=== PATIENT | female | born 1950 | race Caucasian/White ===

== ENCOUNTER → 2018-10-30 10:27 | Outpatient (CLI) | payer MEDICARE, BC | END | disposition home or self-care (01) | LOC: D.CT 10:27 | PROVIDERS: ATTEND Internal Medicine Cardiovascular Disease | DX: I10 Essential (primary) hypertension (principal) ==

== ENCOUNTER → 2019-06-04 10:14 | Outpatient (CLI) | payer MEDICARE, BC | END | disposition home or self-care (01) | LOC: D.HCCARDIO 10:14 | PROVIDERS: ATTEND Internal Medicine Cardiovascular Disease | DX: R07.9 Chest pain, unspecified (principal) ==

== ENCOUNTER 2019-06-11 06:45 | Outpatient (CLI) | payer MEDICARE, BC ==
[~2019-06-11] VITALS: Ht 167.6 cm; Wt 117.3 kg
--- NOTE | ~2019-06-11 | HEMODYNAMI ---
PATIENT:KIAN CHACON MEDICAL RECORD: [id number] : 48 LOCATION:[facility] ADMISSION DATE: 06/11/19 Generatedon:06/11/20198:58 Patient name: KIAN CHACON Patient #: [id number] SSN: [id number] : 1950 Date of study: 06/11/2019 Page: Of Hemodynamic Procedure Report Patient Data Patient Demographics Procedure consent was obtained First Name: KIAN Gender: Female Last Name: INES : 1950 Middle Initial: JAMES Age: 68 year(s) Patient #: [id number] Race: SSN: [id number] Additional ID: [id number] Contact details Address: [place] [address] State: [place] City: [place] Zip code: [address] Past Medical History Performed procedures and imaging results Date Procedure Procedure Results Comments 06/04/2019 Stress testing Positive->Intermediate with SPECT MPI risk Allergies Allergen Reaction Date Comments Reported Other allergy 06/11/2019 MORPHINE Admission Admission Data Admission Date: 06/11/2019 Admission Time: 6:45 Arrival Date: 06/11/2019 Arrival Time: 0:00 Admit Source: Other Insurance Payor: Medicare [facility] #: [id number] Height (in.): 66 BSA: 2.23 (m2) Height (cm.): 167.64 BMI: 41.73 (kg/m2) Weight (lbs.): 258.54 Weight (kg.): 117.27 Lab Results Lab Result Date: 06/11/2019 Lab Result Time: 0:00 Biochemistry Name Units Result Min Max BUN mg/dl 19 --(----)*- 7 18 Creatinine mg/dl 0.9 --(-*--)-- 0.6 1.3 eGFR ml/min 66 *-(----)-- 90 120 NONAFRICAN CBC Name Units Result Min Max Hematocrit % 37.5 *-(----)-- 42 54 Hemoglobin g/dl 11.9 *-(----)-- 13.5 17.5 Procedure Procedure Types Cath Procedure Diagnostic Procedure [facility] w/Coronaries Sedation Charges Moderate Sedation up to 15 minutes Procedure Description Procedure Date Procedure Date: 06/11/2019 Procedure Start Time: 8:39 Procedure End Time: 8:56 Procedure Staff Name Function Tristian Casarez MD Performing Physician Michelle Simmons RN Nurse Kori Simpson RT Scrub Sakshi Lara RT Monitor Procedure Data Cath Procedure Fluoroscopy Diagnostic fluoroscopy Total fluoroscopy Time: 2 time: 2 min min Diagnostic fluoroscopy Total fluoroscopy dose: 526 dose: 526 mGy mGy Contrast Material Contrast Material Type Amount (ml) Isovue 300 60 Entry Location Entry Primary Successful Side Size Upsize Upsize Entry Closure Succes sful Closure Location (Fr) 1 (Fr) 2 (Fr) Remarks Device Remarks Femoral Right 5 Fr Exoseal artery Estimated blood loss: 5 ml Diagnostic catheters Device Type Used For End Catheter Placement MULTIPACK JL 4.0 5Fr Left Coronary catheter Angiography MULTIPACK 3DRC 5Fr Right Coronary catheter Angiography MULTIPACK Pigtail 5 Fr LV Angiography catheter Procedure Complications No complications Procedure Medications Medication Administration Route Dosage Oxygen etCO2 Nasal cannula 2 l/min Lidocaine 2% added to field 20 Heparin Flush Bag added to field 2 bags (1000units/500ml NS) 0.9% NaCl I.V. 100 ml/hr Versed I.V. 1 mg Fentanyl I.V. 50 mcg Versed I.V. 1 mg Fentanyl I.V. 50 mcg Versed I.V. 1 mg Versed I.V. 1 mg Hemodynamics Rest BSA: 2.23 (m2) HGB: 11.9 (g/dl) O2 Consumption: Estimated: 197.7 (ml/min) O2 Con sumption indexed: Estimated:88.65 (ml/min/m) Heart Rate: 60 (bpm) Pressure Samples Time Site Value (mmHg) Purpose Heart Use Rate(bpm) 8:47 LV 131/50,55 Snapshot 60 8:48 LV 137/34,42 Snapshot 61 Gradients Valve Time Site Site Mean SEP/DFP Peak To Heart Use 1 2 (mmHg) (sec/min) Peak Rate (mmHg) (bpm) Aortic 8:48 LV AO 61 Snapshots Pre Cath Intra NCS Post Cath Vital Signs Time Heart Resp SPO2 etCO2 NIBP (mmHg) Rhythm Pain Sedation Rate (ipm) (%) (mmHg) Status Level (bpm) 8:25:50 60 19 97 0 169/101(142) Paced 0 (11) 10(A) , No pain 8:30:07 60 20 100 31 174/101(114) Paced 0 (11) 10(A) , No pain 8:34:27 60 15 95 30.3 145/87(110) Paced 0 (11) 10(A) , No pain 8:38:37 60 14 94 43.6 129/83(99) Paced 0 (11) 10(A) , No pain 8:42:38 62 11 98 37 142/88(115) Paced 0 (11) 9(A) , No pain 8:46:48 60 23 94 45.1 130/77(106) Paced 0 (11) 10(A) , No pain 8:50:52 60 14 95 34 137/86(110) Paced 0 (11) 10(A) , No pain 8:55:00 60 17 96 42.2 135/83(113) Paced 0 (11) 10(A) , No pain Medications Time Medication Route Dose Verified Delivered Reason Notes Effe ctiveness by by 8:25:05 Oxygen etCO2 2 Tristian Buffie used for Nasal l/min Hermelindo Simmons RN procedure cannula 8:27:17 Lidocaine 2% added 20ml Tristian Tristian for local to vial Hermelindo Casarez MD anesthetic field 8:27:23 Heparin Flush added 2 Tristian Tristian used for Bag to bags Hermelindo Casarez MD procedure (1000units/500ml field NS) 8:27:33 0.9% NaCl I.V. 100 Tristian Buffie Per ml/hr Hermelindo Simmons RN physician 8:33:27 Versed I.V. 1 mg Tristian Buffie for Hermelindo Simmons RN sedation 8:33:33 Fentanyl I.V. 50 Tristian Buffie for mcg Hermelindo Simmons RN sedation 8:38:12 Versed I.V. 1 mg Tristian Buffie for Hermelindo Simmons RN sedation 8:38:15 Fentanyl I.V. 50 Tristian Buffie for mcg Hermelindo Simmons RN sedation 8:43:19 Versed I.V. 1 mg Tristian Buffie for Hermelindo Simmons RN sedation 8:47:11 Versed I.V. 1 mg Tristian Buffie for Casarez MD Simmons RN sedation Procedure Log Time Note 8:08:29 Informed consent obtained and on chart 8:08:46 Diagnostic Cath Status : Elective 8:09:00 Arrival Date: 06/11/2019 12:00:00 AM 8:09:01 Admit Source: Other 8:09:05 Insurance Payor : Medicare 8:09:32 Patient Height : 66 inches 8:09:37 Patient Weight : 258.54 lbs 8:10:28 Patient allergic to Other allergyMORPHINE 8:10:54 Michelle Simmons RN sent for patient. Start room use. 8:11:03 Procedure Status Elective Heart Cath (OP). 8:11:04 Time tracking: Regular hours (M-F 7:00 - 5:00) 8:11:08 Plan of Care:Hemodynamics will remain stable., Cardiac rhythm will remain stable., Comfort level will be maintained., Respiratory function will remain adequate., Patient/ family verbilizes understanding of procedure., Procedure tolerated without complication., Recovers from procedure without complications.. 8:11:21 H&P Date Dictated: 06/01/2019 Within 30 days and on chart.. 8:11:27 Lab results completed and on chart. 8:11:39 Stress Test: yes; abnormal ANTERIOR 8:12:02 Lab Result : BUN 19 mg/dl 8:12:02 Lab Result : Creatinine 0.9 mg/dl 8:12:02 Lab Result : eGFR NONAFRICAN 66 ml/min 8:12:02 Lab Result : Hemoglobin 11.9 g/dl 8:12:02 Lab Result : Hematocrit 37.5 % 8:15:22 Patient received from Pre/Post Procedure Room to CCL 1 Alert and oriented. Tansferred to table in Supine position. 8:15:26 Warm blankets applied, and mary hugger turned on for patient comfort. 8:15:26 Correct patient and procedure confirmed by team. 8:15:27 ECG and BP/O2 sat monitors applied to patient. 8:15:31 Pre-procedure instructions explained to patient. 8:15:31 Pre-op teaching completed and patient verbalized understanding. 8:15:33 Family unavailable. 8:15:35 Patient NPO since Midnight. 8:15:37 Is the patient allergic to Iodine/contrast media? No. 8:15:40 Was the patient premedicated? N/A 8:15:42 Is patient on blood thinner?No 8:23:55 Patient diabetic? Yes. 8:24:46 Vital chart was started 8:25:05 Oxygen 2 l/min etCO2 Nasal cannula was administered by Michelle Simmons RN; used for procedure; Verbal order read back and verified. 8:26:20 Called and updated son Shadi per pt request, states her is hard of hearing and her son will relay information. 8:27:17 Lidocaine 2% 20ml vial added to field was administered by Tristian Casarez MD; for local anesthetic; Verbal order read back and verified. 8:27:23 Heparin Flush Bag (1000units/500ml NS) 2 bags added to field was administered by Tristian Casarez MD; used for procedure; Verbal order read back and verified. 8:27:33 0.9% NaCl 100 ml/hr I.V. was administered by Michelle Simmons RN; Per physician; Verbal order read back and verified. 8:27:37 If diabetic: On Metformin? No 8:27:40 Previous problem with sedation/anesthesia? No ? 8:27:43 Patient not . Patient is over age 55. 8:27:48 Snore? Yes 8:27:49 Sleep apnea? Yes 8:27:52 Deviated septum? No 8:27:53 Opens mouth fully? Yes 8:27:54 Sticks out tongue? Yes 8:28:01 Airway obstruction? No ? 8:28:06 Dentures? Yes OUT 8:28:54 Pre procedure: right dorsailis pedis pulse 2+ Normal; easily identifiable; not easily obliterated 8:28:56 Pre procedure: left dorsailis pedis pulse 2+ Normal; easily identifiable; not easily obliterated 8:28:58 Patient pain scale 0/10 ?. 8:29:03 IV patent on arrival in left forearm with 0.9% NaCl at [facility]. 8:30:30 Risk of Mortality: 0.1 8:30:34 Risk of blood transfusion: 1.5 8:30:37 Risk of ÁNGELA: 0.5 8:30:41 Right groin area was prepped with chlora-prep and draped in sterile fashion 8:30:42 Alarms reviewed by R. N. 8:30:42 Sharps counted by scrub and verified by [facility] 8:30:46 Physician arrived 8::46 --------ALL STOP TIME OUT------ 8:30:46 Final Timeout: patient, procedure, and site verified with staff and physician. All members of the team are in agreement. 8:30:49 Right groin site verified by team. 8:30:52 Fire Safety Assessment: A--An alcohol-based skin anteseptic being used preoperatively., C--Open oxygen or nitrous oxide is being used., D--An ESU, laser, or fiber-optic light is being used. 8:30:56 Physical assessment completed. ASA score P 2 - A patient with mild systemic disease as per Tristian Casarez MD. 8:31:05 2) 60-89 Mildly reduced kidney function, and other findings (as for stage 1) point to kidney disease. 8:31:25 Maximum allowable contrast dose (3.7 X eGFR X 0.75)183 ml. 8:31:29 Sedation plan: IV Moderate Sedation Medication:Versed, Fentanyl 8:31:32 Use device set Femoral Dx 8:31:34 ACIST Syringe (10430) opened to sterile field. 8:31:34 Bag Decanter (2002S) opened to sterile field. 8:31:34 Medline Cath Pack ([id number]) opened to sterile field. 8:31:35 ACIST Hand Control (70443) opened to sterile field. 8:31:36 ACIST Manifold (28739) opened to sterile field. 8:31:36 DIAGNOSTIC Multipack 5Fr catheter set ([id number]) opened to sterile field. 8:31:37 Tegaderm 4 x 4 (1626W) opened to sterile field. 8:31:38 SHEATH 5FR Brave (RPP930) opened to sterile field. 8:31:38 EMERALD Guide Wire (169-394) opened to sterile field. 8:33:27 Versed 1 mg I.V. was administered by Michelle Simmons RN; for sedation; Verbal order read back and verified. 8:33:33 Fentanyl 50 mcg I.V. was administered by Michelle Simmons RN; for sedation; Verbal order read back and verified. 8:38:12 Versed 1 mg I.V. was administered by Michelle Simmons RN; for sedation; Verbal order read back and verified. 8:38:15 Fentanyl 50 mcg I.V. was administered by Michelle Simmons RN; for sedation; Verbal order read back and verified. 8:39:03 Procedure started. 8:39:03 Full Disclosure recording started 8:39:05 Local anesthetic to right femoral artery with Lidocaine 2% by Tristian Casarez MD.INITIAL ACCESS ONLY 8:40:09 Baseline sample Acquired. 8:40:15 Rhythm: paced 8:42:30 A 5 Fr sheath was inserted into the Right Femoral artery 8:42:49 A MULTIPACK JL 4.0 5Fr catheter was advanced over the wire and used for Left Coronary Angiography. 8:43:19 Versed 1 mg I.V. was administered by Michelle Simmons RN; for sedation; Verbal order read back and verified. 8:43:24 LCA angiography performed. 8:43:27 Injector settings: Ml/sec: 3, Volume: 6, 8:44:43 Catheter removed. 8:44:48 A MULTIPACK 3DRC 5Fr catheter was advanced over the wire and used for Right Coronary Angiography. 8:46:03 RCA angiography performed. 8:46:06 Injector settings: Ml/sec: 3, Volume: 6, 8:46:09 ACCDominant side:Right 8:46:12 EXOSEAL 5Fr (EX500) opened to sterile field. 8:46:43 Catheter removed. 8:46:47 A MULTIPACK Pigtail 5 Fr catheter was advanced over the wire and used for LV Angiography. 8:47:11 Versed 1 mg I.V. was administered by Michelle Simmons RN; for sedation; Verbal order read back and verified. 8:48:11 LV hemodynamics recorded. 8:48:13 LV gram done using MERCER 8:48:15 Injector settings: Ml/sec: 5, Volume: 15, 8:48:21 EF : 60 % 8:48:36 Catheter removed. 8:49:02 Sheath removed intact; hemostasis achieved with Exoseal to the Right Femoral artery. 8:49:06 Procedure ended.(Physican Out) 8:49:21 Fluoroscopy time 02.00 minutes. 8:49:26 Fluoroscopy dose: 526 mGy 8:49:26 Flurop Dose total: 526 8:49:31 Dose Area Product 05212 mGy/cm. 8:49:35 Contrast amount:Isovue 300 60ml. 8:49:37 Maximum allowable dose exceeded? No. 8:49:38 Sharps counted by scrub and verified by R.N. 8:49:39 Insertion/operative site no bleeding no hematoma. 8:49:41 Post-op/insertion site Right Femoral artery dressed using a 4 x 4 and Tegaderm. 8:49:45 Post procedure rhythm: unchanged. 8:56:01 Estimated blood loss: 5 ml 8:56:02 Post procedure instruction explained to patient.Patient verbalizes understanding. 8:56:03 Patient needs reinforcement of post procedure teaching. 8:56:33 Procedure type changed to Cath procedure, Diagnostic procedure, LHC, [facility] w/Coronaries, Sedation Charges, Moderate Sedation up to 15 minutes 8:56:35 Procedure and supply charges have been captured, reviewed, submitted and are correct. 8:56:39 Procedure Complication : No complications 8:56:42 Vital chart was stopped 8:56:44 [facility] Findings: mild to moderate CAD (<70%) 8:56:46 Operative report dictated upon procedure completion. 8:56:46 See physician's report for complete and final results. 8:56:48 Report given to Pre/Post Procedure Room. 8:56:51 Patient transfered to Pre/Post Procedure Room with Stretcher. 8:56:53 Procedure ended. 8:56:53 Full Disclosure recording stopped 8:56:57 End room use (Document Last) 8:57:23 End room use (Document Last) 8:57:41 End room use (Document Last) Device Usage Item Name Manufacture Quantity Catalog Hospital Part Current Minimal L ot# / Number Charge Number Stock Stock Serial# Code ACIST Acist 1 23846 594423 544884 587340 20 Syringe Medical (81939) Systems Inc Bag Microtek 1 2001S 781477 67001 567021 5 Decanter Medical Inc. () Medline Medline 1 [id number] 829044 66332 077844 5 Cath Pack ([id number]) ACIST Hand Acist 1 55128 806985 690679 166482 5 Control Medical (89587) Systems Inc ACIST Acist 1 07499 564075 411028 592435 5 Manifold Medical (68993) Systems Inc DIAGNOSTIC Cardinal 1 WQ2064 181551 72109 862634 30 [facility] 5Fr catheter set (II9531) Tegaderm 4 3M 1 1626W 773193 811743 561651 5 x 4 (1626W) SHEATH 5FR Terumo 1 GCP078 725903 656195 579532 5 Brave (ROD483) EMERALD Cardinal 1 136-048 835580 760083 338757 5 Guide Wire Health (419-063) MULTIPACK Cardinal 1 928894 5 JL 4.0 5Fr Health catheter MULTIPACK Cardinal 1 711360 5 3DRC 5Fr Health catheter EXOSEAL 5Fr Cardinal 1 EX500 771743 809030 379336 10 (EX500) Health MULTIPACK Cardinal 1 375428 5 Pigtail 5 Health Fr catheter Signature [facility] [place] Stage Time Signature Unsigned Intra-Procedure 06/11/2019 Sakshi Lara 8:57:23 AM RT(R) Intra-Procedure 06/11/2019 Michelle Simmons RN 8:57:41 AM Intra-Procedure 06/11/2019 Tristian Casarez MD 8:58:05 AM [id number] [place] [address]
[2019-06-11] MEDS ORDERED: DURAGESIC1 PATCH .2 TRANSDERM (07:03)
[2019-06-11] MEDS ORDERED: HYDROCODON-ACE1 EA10 PO (07:03)
[2019-06-11] MEDS ORDERED: ZANAFLEX4 MG PO (07:04)
[2019-06-11] MEDS ORDERED: BENICAR40 MG PO (07:05)
[2019-06-11] MEDS ORDERED: METOPROLOL TART50 MG PO (07:05)
[2019-06-11] MEDS ORDERED: LIPITOR40 MG PO (07:06)
[2019-06-11] MEDS ORDERED: BAYER CHEWABLE81 MG PO (07:07)
[2019-06-11 07:37] LABS: BASOPHILS 0.6 % (0-2); EOSINOPHILS 2.8 % (0-7); HEMATOCRIT 37.5 % (36.0-48.0); HEMOGLOBIN 11.9 g/dL (12-16); LYMPHOCYTES 35.4 % (15-50); MCH 28.3 pg (26.0-34.0); MCHC 31.7 g/dL (31.0-37.0); MCV 89.1 fL (80.0-100.0); MEAN PLATELET VOLUME 9.2 fL (7.4-10.4); MONOCYTES 9.5 % (2-11); NEUTROPHILS 51.7 % (40-80); PLATELET COUNT 151 10x3/uL (130-400); RBC 4.21 10x6/uL (4.00-5.40); RDW 14.9 % (11.5-14.5); WBC 3.3 10x3/uL (4.8-10.8)
[2019-06-11 07:40] VITALS: BP 136/79; Ht 167.6 cm; Wt 117.3 kg
[2019-06-11 08:01] LABS: ANION GAP 12.8 mmol/L (8-16); CALCIUM 8.2 mg/dL (8.5-10.1); CARBON DIOXIDE 25.9 mmol/L (21.0-32.0); CHOL - HDL RATIO 3.5 ratio (2.3-4.1); CREATININE - SERUM 0.9 mg/dL (0.6-1.3); LDL-HDL RATIO 1.6 ratio (1.5-3.5); POTASSIUM - SERUM 3.7 mmol/L (3.5-5.1)
[2019-06-11] MEDS ORDERED: OMEPRAZOLE40 MG PO (08:36)
[2019-06-11] MEDS ORDERED: MIRALAX17 GM PO (08:37)
--- NOTE | 2019-06-11 09:10 | NUR ---
PT REC'D TO ROOM 6 FROM IMPERSONATOR CHARACTER. MONITORS ESTAB. PT DROWSY/FOLLOWS COMMANDS. SEE [facility] [employer] INSTALLATION HELPER. ALARMS ON AND C/L IN REACH.
--- NOTE | 2019-06-11 09:25 | NUR ---
R GROIN SITE SOFT, C/D/I, NO S/S BLEEDING OR HEMATOMA. R LEG/FOOT WARM WITH PALP PULSES. PT RESTING QUIETLY, VSS. C/L IN REACH.
--- NOTE | 2019-06-11 09:55 | NUR ---
PT RESTING QUIETLY. R GROIN SITE SOFT, NO S/S BLEEDING OR HEMATOMA. PULSES PALP. VSS. ALARMS ON AND C/L IN REACH.
--- NOTE | 2019-06-11 10:06 | NUR ---
UPDATED PTS , DISCHARGE INSTRUCTIONS REVIEWED. PLAN FOR PT D/C AT 1145.
--- NOTE | 2019-06-11 10:10 | NUR ---
R GROIN SITE SOFT, NO S/S BLEEDING OR HEMATOMA. PT DENIES NEEDS. VSS. C/L IN REACH.
--- NOTE | 2019-06-11 10:25 | NUR ---
DR. MIGUEL IN TO SEE PT.
--- NOTE | 2019-06-11 10:45 | NUR ---
R GROIN SITE SOFT, C/D/I. PT HOB ELEVATED AND SANDWICH TRAY WITH A COLA SERVED. PT DENIES OTHER NEEDS.
--- NOTE | 2019-06-11 11:04 | NUR ---
R GROIN SITE SOFT, C/D/I. VSS. PT DENIES NEEDS. C/L IN REACH.
--- NOTE | 2019-06-11 11:30 | NUR ---
R GROIN SITE SOFT, C/D/I. PIV D/C'D INTACT - DSG APPLIED AND PT ALLOWED UP TO GET DRESSED.
--- NOTE | 2019-06-11 11:40 | NUR ---
PT TO BR INDEPENDENTLY. THEN ALL D/C INSTRUCTIONS REVIEWED WITH PT - VERBALIZES UNDERSTANDING. DENIES ANY QUESTIONS.
--- NOTE | 2019-06-11 11:45 | NUR ---
PT D/C'D TO PRIVATE VEHICLE WITH . PT HAS ALL PAPERWORK AND BELONGINGS.
== END 2019-06-11 11:45 | disposition home or self-care (01) ==
LOC: D.CATH 06:45
PROVIDERS: ATTEND Internal Medicine Cardiovascular Disease
DX: I20.9 Angina pectoris, unspecified (principal); R94.39 Abnormal result of other cardiovascular function study; E78.5 Hyperlipidemia, unspecified; I10 Essential (primary) hypertension; R07.9 Chest pain, unspecified; Z95.0 Presence of cardiac pacemaker